=== PATIENT | male | born 1975 | race Two or more races ===

== ENCOUNTER → 2022-05-06 | Emergency (ER) | payer OTHER ==
[~2022-05-06] VITALS: Ht 167.6 cm; Wt 70.3 kg
[2022-05-06 22:30] VITALS: BP 126/70
== END | disposition home or self-care (01) ==
LOC: EDBD 22:34 → ER 22:34
DX: Z53.21 Procedure and treatment not carried out due to patient leaving prior to being seen by health care provider (principal)

== ENCOUNTER 2023-07-10 05:14 | Emergency (ER) | payer OTHER ==
[~2023-07-10] VITALS: Ht 170.2 cm; Wt 74.8 kg
[2023-07-10 05:26] VITALS: BP 135/78; TEMP 98
[2023-07-10 06:34] VITALS: O2SAT 99
== END 2023-07-10 06:34 | disposition home or self-care (01) ==
LOC: ER 05:20
DX: M79.671 Pain in right foot (principal); M79.672 Pain in left foot; Z59.00 Homelessness unspecified